=== PATIENT | female | born 1975 | race American Indian/Alaskan Native ===

== ENCOUNTER 2017-02-28 09:09 | Emergency (ER) | payer SELFPAY ==
[2017-02-28 09:47] LABS: Basophils % (Auto) 1.2 % (0.0-1.8); Eosinophils % (Auto) 1.3 % (0.0-4.3); Hematocrit 30.3 % (30.3-42.9); Hemoglobin 9.7 gm/dl (10.1-14.3); Mean Corpuscular HGB Conc 32 % (30-34); Platelet Count 412 K/mm3 (140-440); Red Blood Count 4.39 M/mm3 (3.65-5.03); Red Cell Distribution Width 17.3 % (13.2-15.2); White Blood Count 5.8 K/mm3 (4.5-11.0)
[2017-02-28 09:50] LABS: Mean Corpuscular Hemoglobin 22 pg (28-32); Mean Corpuscular Volume 69 fl (79-97)
[2017-02-28 10:02] LABS: Anion Gap 14 mmol/L; BUN/Creatinine Ratio 24; Blood Urea Nitrogen 12 mg/dL (7-17); Carbon Dioxide 28 mmol/L (22-30); Chloride 104.1 mmol/L (98-107); Glucose 113 mg/dL (65-100); Potassium 4.4 mmol/L (3.6-5.0); Sodium 142 mmol/L (137-145)
[2017-02-28 10:26] LABS: INR 1.06 (0.87-1.13)
[2017-02-28 10:27] LABS: Partial Thromboplastin Time 32.1 Sec. (24.2-36.6)
[2017-02-28] MEDS ORDERED: TORADOL IM ONE (12:33)
[2017-02-28] MEDS ORDERED: NORCO 10/325 PO ONE (12:34)
[2017-02-28] MEDS ORDERED: MORPHINE IV ONE (14:00)
[2017-02-28] MEDS ORDERED: BENADRYL IV ONE (14:00)
[2017-02-28] MEDS ORDERED: REGLAN IV ONE (14:00)
--- NOTE | 2017-02-28 14:00 | Emergency Department Report ---
ED General Adult HPI - General Chief complaint: Chest Pain Stated complaint: CHEST PAIN Time Seen by Provider: 02/28/17 12:30 Source: patient Mode of arrival: Ambulatory Limitations: No Limitations - History of Present Illness Initial comments: Patient is a 41-year-old female past medical history of hypertension who presents with right-sided chest pain that has been going on for a couple days but got worse today. Patient says the chest pain is sharp pain. It's a 10 out of 10 nothing makes it better breathing and makes it worse worse. Patient states that there is constant headache is also severe. Patient denies having any shortness of breath she denies any leg swelling she denies having any trouble breathing. Severity scale (0 -10): 10 - Related Data Previous Rx's Medication Instructions Recorded Last Taken Type Acetaminophen [Acetaminophen TAB] 1,000 mg PO Q6HR PRN #30 tablet 02/28/17 Unknown Rx Naproxen 250 mg PO BID #20 tablet 02/28/17 Unknown Rx Allergies Allergy/AdvReac Type Severity Reaction Status Date / Time Penicillins Allergy Itching Verified 02/28/17 09:32 ED Review of Systems ROS: Stated complaint: CHEST PAIN Other details as noted in HPI Constitutional: denies: chills, fever Eyes: denies: eye pain, eye discharge, vision change ENT: denies: ear pain, throat pain Respiratory: denies: cough, shortness of breath, wheezing Cardiovascular: chest pain. denies: palpitations Endocrine: no symptoms reported Gastrointestinal: denies: abdominal pain, nausea, diarrhea Genitourinary: denies: urgency, dysuria, discharge Musculoskeletal: denies: back pain, joint swelling, arthralgia Skin: denies: rash, lesions Neurological: headache. denies: weakness, paresthesias Psychiatric: denies: anxiety, depression Hematological/Lymphatic: denies: easy bleeding, easy bruising ED Past Medical Hx - Past Medical History Previous Medical History?: Yes Additional medical history: "early signs of MS" per pt - Surgical History Past Surgical History?: Yes Additional Surgical History: tubal ligation. x3 - Social History Smoking Status: Never Smoker Substance Use Type: None - Medications Home Medications: Home Medications Medication Instructions Recorded Confirmed Last Taken Type Acetaminophen [Acetaminophen TAB] 1,000 mg PO Q6HR PRN #30 tablet 02/28/17 Unknown Rx Naproxen 250 mg PO BID #20 tablet 02/28/17 Unknown Rx ED Physical Exam - General Limitations: No Limitations General appearance: alert, in no apparent distress - Head Head exam: Present: atraumatic, normocephalic - Eye Eye exam: Present: normal appearance - ENT ENT exam: Present: mucous membranes moist - Neck Neck exam: Present: normal inspection - Respiratory Respiratory exam: Present: normal lung sounds bilaterally, chest wall tenderness (under left breast (nurse chaparone) ). Absent: respiratory distress - Cardiovascular Cardiovascular Exam: Present: regular rate, normal rhythm. Absent: systolic murmur, diastolic murmur, rubs, gallop - GI/Abdominal GI/Abdominal exam: Present: soft, normal bowel sounds - Extremities Exam Extremities exam: Present: normal inspection - Back Exam Back exam: Present: normal inspection - Neurological Exam Neurological exam: Present: alert, oriented X3 - Psychiatric Psychiatric exam: Present: normal affect, normal mood - Skin Skin exam: Present: warm, dry, intact, normal color. Absent: rash ED Course Vital Signs 02/28/17 02/28/17 02/28/17 09:29 12:12 12:16 Temperature 98.3 F Pulse Rate 85 103 H 90 Respiratory 22 23 11 L Rate Blood Pressure 129/89 126/72 O2 Sat by Pulse 100 99 96 Oximetry 02/28/17 02/28/17 02/28/17 12:30 12:46 12:51 Temperature Pulse Rate 97 H 87 Respiratory 13 15 18 Rate Blood Pressure 126/72 126/72 O2 Sat by Pulse 98 100 Oximetry 02/28/17 02/28/17 02/28/17 12:54 13:00 13:03 Temperature Pulse Rate 80 Respiratory 18 22 18 Rate Blood Pressure 127/68 O2 Sat by Pulse 100 99 Oximetry 02/28/17 02/28/17 02/28/17 13:51 14:00 14:10 Temperature Pulse Rate 73 80 Respiratory 18 16 Rate Blood Pressure 127/68 O2 Sat by Pulse 100 Oximetry 02/28/17 02/28/17 02/28/17 16:00 17:00 18:00 Temperature Pulse Rate 66 71 70 Respiratory 14 11 L 12 Rate Blood Pressure 119/79 114/63 118/65 O2 Sat by Pulse 100 100 100 Oximetry ED Medical Decision Making - Lab Data Result diagrams: 02/28/17 09:35 10/19/17 09:35 Lab Results 02/28/17 02/28/17 02/28/17 Range/Units 09:35 09:35 09:35 WBC 5.8 (4.5-11.0) K/mm3 RBC 4.39 (3.65-5.03) M/mm3 Hgb 9.7 L (10.1-14.3) gm/dl Hct 30.3 (30.3-42.9) % MCV 69 L (79-97) fl MCH 22 L (28-32) pg MCHC 32 (30-34) % RDW 17.3 H (13.2-15.2) % Plt Count 412 (140-440) K/mm3 Lymph % (Auto) 30.9 (13.4-35.0) % Cameron % (Auto) 11.0 H (0.0-7.3) % Eos % (Auto) 1.3 (0.0-4.3) % Baso % (Auto) 1.2 (0.0-1.8) % Lymph # 1.8 (1.2-5.4) K/mm3 Cameron # 0.6 (0.0-0.8) K/mm3 Eos # 0.1 (0.0-0.4) K/mm3 Baso # 0.1 (0.0-0.1) K/mm3 Seg Neutrophils % 55.6 (40.0-70.0) % Seg Neutrophils # 3.2 (1.8-7.7) K/mm3 PT 14.3 (12.2-14.9) Sec. INR 1.06 (0.87-1.13) APTT 32.1 (24.2-36.6) Sec. Sodium 142 (137-145) mmol/L Potassium 4.4 (3.6-5.0) mmol/L Chloride 104.1 (98-107) mmol/L Carbon Dioxide 28 (22-30) mmol/L Anion Gap 14 mmol/L BUN 12 (7-17) mg/dL Creatinine 0.5 L (0.7-1.2) mg/dL Estimated GFR > 60 ml/min BUN/Creatinine Ratio 24 % Glucose 113 H (65-100) mg/dL Calcium 9.0 (8.4-10.2) mg/dL Troponin T < 0.010 (0.00-0.029) ng/mL HCG, Qual (Negative) 02/28/17 02/28/17 02/28/17 Range/Units 09:35 12:50 14:43 WBC (4.5-11.0) K/mm3 RBC (3.65-5.03) M/mm3 Hgb (10.1-14.3) gm/dl Hct (30.3-42.9) % MCV (79-97) fl MCH (28-32) pg MCHC (30-34) % RDW (13.2-15.2) % Plt Count (140-440) K/mm3 Lymph % (Auto) (13.4-35.0) % Cameron % (Auto) (0.0-7.3) % Eos % (Auto) (0.0-4.3) % Baso % (Auto) (0.0-1.8) % Lymph # (1.2-5.4) K/mm3 Cameron # (0.0-0.8) K/mm3 Eos # (0.0-0.4) K/mm3 Baso # (0.0-0.1) K/mm3 Seg Neutrophils % (40.0-70.0) % Seg Neutrophils # (1.8-7.7) K/mm3 PT (12.2-14.9) Sec. INR (0.87-1.13) APTT (24.2-36.6) Sec. Sodium (137-145) mmol/L Potassium (3.6-5.0) mmol/L Chloride (98-107) mmol/L Carbon Dioxide (22-30) mmol/L Anion Gap mmol/L BUN (7-17) mg/dL Creatinine (0.7-1.2) mg/dL Estimated GFR ml/min BUN/Creatinine Ratio % Glucose (65-100) mg/dL Calcium (8.4-10.2) mg/dL Troponin T < 0.010 < 0.010 (0.00-0.029) ng/mL HCG, Qual Negative (Negative) - EKG Data -: EKG Interpreted by Me - EKG Data 02/28/17 18:30 EKG showed normal sinus rhythm, normal axis no T wave inversion and no ST segment elevations - Radiology Data Radiology results: report reviewed, image reviewed Chest x-ray: Shows no acute cardiopulmonary disease - Medical Decision Making Chief medical diagnosis: Pleurisy Differential medical diagnosis: Costochondritis, non-STEMI, pull chest wall muscle CBC, CMP, EKG, troponin, chest x-ray, IV morphine, IV Reglan, IM Toradol, normal saline bolus Patient's laboratory and radiology results are unremarkable patient is feeling better after IV morphine after resting. She still states the pain is there but it's a lot better. Due to patient having reproducible chest wall tenderness no leg swelling no shortness of breath patient is unlikely to have a pulmonary embolism. Discussed with patient I we'll send patient home with a neurology referral as she is requesting one she's been trying to seen a neurologist for possible multiple sclerosis symptoms. I'll send patient home with naproxen and acetaminophen. Discussed plan with patient to pursue plan and additional verbal discharge instructions were given. Patient's chest pain is most likely due to either pull chest wall muscle or costochondritis. Critical care attestation.: If time is entered above; I have spent that time in minutes in the direct care of this critically ill patient, excluding procedure time. ED Disposition Clinical Impression: Pleurisy Chest pain Qualifiers: Chest pain type: chest pain on breathing Qualified Code(s): R07.1 - Chest pain on breathing Headache Qualifiers: Headache type: tension-type Headache chronicity pattern: acute headache Intractability: intractable Qualified Code(s): G44.201 - Tension-type headache, unspecified, intractable Disposition: DC-01 TO HOME OR SELFCARE Is pt being admited?: No Does the pt Need Aspirin: No Condition: Stable Instructions: Chest Pain (ED) Prescriptions: Acetaminophen [Acetaminophen TAB] 1,000 mg PO Q6HR PRN #30 tablet PRN Reason: Pain Naproxen 250 mg PO BID #20 tablet Referrals: TANNER CUEVAS MD [Staff Physician] - 3-5 Days ROSHNI GUTIERREZ MD [Staff Physician] - 3-5 Days CELESTINA JONES MD [Staff Physician] - 3-5 Days Forms: Work/School Release Form(ED)
--- NOTE | 2017-02-28 14:00 | XRay Report ---
CHEST 2 VIEWS INDICATION: Left-sided chest pain. COMPARISON: None similar at this institution. FINDINGS: PA and lateral chest radiographs demonstrate normal cardiomediastinal silhouette. Clear lungs. Mild mid thoracic spine degenerative spurring. CONCLUSION: No acute disease in the chest. Thank you for the opportunity to participate in this patient's care.
[2017-02-28] MEDS ORDERED: NACL 0.9% 1000 ML 1,000 ML IV ONE (14:19)
[2017-02-28] MEDS ORDERED: LIDODERM 5% TD ONE (14:24)
[2017-02-28] MEDS ORDERED: MORPHINE ONE ×2 (14:35→14:36)
[2017-02-28 18:11] VITALS: BP 118/65
== END 2017-02-28 18:11 | disposition home or self-care (01) ==
LOC: ED 09:09
DX: R09.1 Pleurisy (principal); R51 Headache; Z88.0 Allergy status to penicillin
CPT/HCPCS: 36415; 71020; 80048; 84484; 84703; 85025; 85610; 85730; 93005; 93010; 96361; 96372; 96374; 96375; 99284; J1200; J1885; J2270; J2765; J7030